=== PATIENT | female | born 1970 | race Caucasian/White ===

== ENCOUNTER 2024-01-07 08:11 | Observation (INO) | payer BC ==
[2024-01-01 11:26] LABS: BASOPHILS # (AUTO) 0.1 X10'3 (0-0.2); EOSINOPHILS # (AUTO) 0.1 X10'3 (0-0.9); EOSINOPHILS % (AUTO) 0.9 % (0-6); LYMPHOCYTES # (AUTO) 1.3 X10'3 (1.1-4.8); LYMPHOCYTES % (AUTO) 15.9 % (21-51); MEAN CORPUSCULAR HEMOGLOBIN 27.9 PG (27.0-31.0); MEAN CORPUSCULAR HGB CONC 33.4 g/dL (33.0-36.5); MEAN CORPUSCULAR VOLUME 83.4 FL (78-98); MEAN PLATELET VOLUME 6.4 FL (7.4-10.4); MONOCYTES # (AUTO) 0.6 X10'3 (0-0.9); MONOCYTES % (AUTO) 7.6 % (2-12); NEUTROPHILS # (AUTO) 6.1 X10'3 (1.8-7.7); NEUTROPHILS % (AUTO) 74.6 % (42-75); PRE OP HEMATOCRIT 44.5 % (35.0-45.0); PRE OP HEMOGLOBIN 14.9 g/dL (12.0-16.0); PRE OP PLATELET COUNT 271 X10'3 (140-440); PRE OP WHITE BLOOD COUNT 8.1 10'3 (4.8-10.8); RED BLOOD COUNT 5.33 X10'6 (4.20-5.60); RED CELL DISTRIBUTION WIDTH 14.6 % (11.5-14.5)
[2024-01-01 11:36] LABS: PRE OP PROTIME 10.7 SECONDS (9.0-12.0)
[2024-01-01 11:46] LABS: ALBUMIN 3.4 G/DL (3.4-5.0); ALBUMIN/GLOBULIN RATIO 0.8 (1.1-1.5); ALKALINE PHOSPHATASE 109 IU/L (46-116); BLOOD UREA NITROGEN 21 MG/DL (7-18); BUN/CREATININE RATIO 24.7 (10.0-20.0); CALCIUM 8.6 MG/DL (8.5-10.1); CHLORIDE 106 MMOL/L (99-107); CREATININE 0.85 MG/DL (0.40-0.90); PRE OP ALT 24 U/L (30-65); PRE OP ANION GAP 8 (8-16); PRE OP AST 17 U/L (10-37); PRE OP BILIRUB, TOTAL 0.3 MG/DL (0.0-1.0); PRE OP GLUCOSE 98 MG/DL (70-104); PRE OP POTASSIUM 3.9 MMOL/L (3.4-5.1); PRE OP SODIUM 141 MMOL/L (135-145); TOTAL CARBON DIOXIDE 26.6 MMOL/L (24-32); TOTAL PROTEIN 7.6 G/DL (6.4-8.2); eGFR 69 ML/MIN
[~2024-01-07] VITALS: Ht 172.7 cm; Wt 116.8 kg
[2024-01-07] VITALS (31 sets, daily range): BP systolic 98–189; BP diastolic 47–96; PULSE 77–105; RESP 11–22; TEMP 96.9–99; O2SAT 90–99
[2024-01-07] MEDS: cefazolin 2gm/D5W 100mL 100 ML IV ONE (05:30)
[~2024-01-07 08:11] MED LIST: ASHWAGANDA PO; BUPIVACAINE liposomal/PF 13.3 MG/ML vial IM ONE; BUPIVAcaine/PF 2.5mg/ml (0.25%) 10ml vial ONE; CRANBERRY PO; LORA-269 PO; NAC PO; VITAMIN C PO; [UNRECOGNIZED DRUG - OTHER] PO; [UNRECOGNIZED DRUG - OTHER] PO; methylene blue (5mg/ml) 50mg/10ml ampul IV ONE
[2024-01-07] MEDS: ringers solution, lacted 1,000 ML IV SCH ×3 (08:51→14:39)
[2024-01-07] MEDS: famotidine 20mg tablet PO ONE (08:52)
[2024-01-07] MEDS ORDERED: BUPIVAcaine/PF 2.5mg/ml (0.25%) 10ml vial ONE (09:17)
[2024-01-07] MEDS ORDERED: BUPIVACAINE liposomal/PF 13.3 MG/ML vial IM ONE (09:17)
[2024-01-07] MEDS ORDERED: BUPIVAcaine 0.5% inj/PF 30 ML ONE (09:17)
[2024-01-07] MEDS ORDERED: sevoflurane 250ml liquid IH ONE (09:21)
[2024-01-07] MEDS ORDERED: propofol inj 20 ML IV ONE (09:24)
[2024-01-07] MEDS ORDERED: MIDAZolam 1 MG/ML 5ML VIAL ONE (09:24)
[2024-01-07] MEDS ORDERED: rocuronium 10mg/ml inj IV ONE (09:24)
[2024-01-07] MEDS ORDERED: ondansetron/PF 4mg/2ml inj ONE (09:24)
[2024-01-07] MEDS ORDERED: dexamethasone sod phosphate 4mg/ml inj. ONE (09:24)
[2024-01-07] MEDS ORDERED: LIDOcaine 2% (20mg/ml) 5ml vial ONE (09:24)
[2024-01-07] MEDS ORDERED: fentaNYL /PF 50mcg/ml 5ml ampule ONE (09:25)
[2024-01-07] MEDS: methylene blue (5mg/ml) 50mg/10ml ampul IV ONE (09:35)
[2024-01-07] MEDS ORDERED: labetalol 20mg/4ml (5mg/ml) syringe IV ONE ×3 (09:52→12:36)
[2024-01-07] MEDS ORDERED: acetaminophen 1,000mg/100ml IV 100 ML IV ONE (09:53)
[2024-01-07] MEDS ORDERED: labetalol 20mg/4ml (5mg/ml) syringe IV PRN (10:20)
[2024-01-07] MEDS ORDERED: fentaNYL/PF 50MCG/1 ML 2ML syringe IV PRN (10:20)
[2024-01-07] MEDS ORDERED: hydrALAZINE 20mg/ml inj. IV PRN (10:20)
[2024-01-07] MEDS ORDERED: HYDROmorphone/PF 0.2 MG/ML SYRINGE IV PRN (10:20)
[2024-01-07] MEDS ORDERED: hydrALAZINE 20mg/ml inj. IV ONE (11:39)
[2024-01-07] MEDS ORDERED: fentaNYL/PF 50MCG/1 ML 2ML syringe ONE (12:20)
[2024-01-07] MEDS: ondansetron/PF 4mg/2ml inj IV PRN (13:42)
[2024-01-07] MEDS: fentaNYL/PF 50MCG/1 ML 2ML syringe IV PRN (14:01)
[2024-01-07] MEDS ORDERED: morphine 2 MG/ML inj. syringe IV PRN (14:10)
[2024-01-07] MEDS ORDERED: ondansetron/PF 4mg/2ml inj IV PRN (14:10)
[2024-01-07] MEDS: HYDROmorphone/PF 0.2 MG/ML SYRINGE IV PRN (14:25)
[2024-01-07] MEDS: LORazepam 2 mg/ml vial IV ONE (15:08)
[2024-01-07] MEDS: ceFAZolin/D5W- 1GM premix 50 ML IV SCH (16:24)
[2024-01-07] MEDS: HYDROcodone/acetaminophen 5mg/325mg tablet PO PRN (20:32)
[2024-01-07] MEDS ORDERED: diphenhydrAMINE 25mg capsule PO PRN (23:45)
[2024-01-07] MEDS ORDERED: HYDROmorphone inj. 0.5 MG/0.5 ML DISP.SYRIN IV PRN (23:45)
[2024-01-08 02:00] VITALS: BP 111/52
[2024-01-08] MEDS: LORazepam 1 MG tablet PO PRN (04:45)
[2024-01-08 07:00] VITALS: RESP 16; O2SAT 95
[2024-01-08 07:24] LABS: BASOPHILS % (AUTO) 0.2 % (0-1); EOSINOPHILS % (AUTO) 0 % (0-6); HEMATOCRIT 36.4 % (35.0-45.0); LYMPHOCYTES # (AUTO) 1.2 X10'3 (1.1-4.8); LYMPHOCYTES % (AUTO) 7.6 % (21-51); MEAN CORPUSCULAR HEMOGLOBIN 27.6 PG (27.0-31.0); MEAN CORPUSCULAR VOLUME 83.5 FL (78-98); MEAN PLATELET VOLUME 6.7 FL (7.4-10.4); MONOCYTES % (AUTO) 6.8 % (2-12); NEUTROPHILS # (AUTO) 12.9 X10'3 (1.8-7.7); NEUTROPHILS % (AUTO) 85.4 % (42-75); PLATELET COUNT 233 X10'3 (140-440); RED BLOOD COUNT 4.36 X10'6 (4.20-5.60); RED CELL DISTRIBUTION WIDTH 14.8 % (11.5-14.5); WHITE BLOOD COUNT 15.1 X10'3 (4.5-11.0)
[2024-01-08 07:58] VITALS: RESP 16; O2SAT 98
[2024-01-08 08:38] VITALS: PULSE 86; RESP 16; O2SAT 99
[2024-01-08 10:00] VITALS: BP 139/72; PULSE 85; RESP 20; TEMP 98.6; O2SAT 97
== END 2024-01-08 13:10 | disposition home or self-care (01) ==
LOC: PAS 08:11 → PACU 14:28 → SUR 3N 16:30
PROVIDERS: ADMIT Surgery; ATTEND Surgery
DX: D05.12 Intraductal carcinoma in situ of left breast (principal); D05.11 Intraductal carcinoma in situ of right breast; G47.30 Sleep apnea, unspecified; F41.9 Anxiety disorder, unspecified; E66.9 Obesity, unspecified; Z87.891 Personal history of nicotine dependence; Z79.899 Other long term (current) drug therapy
CPT/HCPCS: 19303; 36415; 38525; 38792; 80053; 82948; 85025; 85610; 85730; 93005; 94760; 96365; 96366; 96375; 96376; C9290; G0378; J0131; J0360; J0690; J1100; J1170; J2060; J2250; J2405; J2704; J3010; J3490; J7120; Q9968; A4215; A4615; A4618; A6253; A6258; A6449; A7000; C9250; S0020

== ENCOUNTER 2024-12-02 13:52 | Emergency (ER) | payer BC, MEDICAID ==
[~2024-12-02] VITALS: Ht 167.6 cm; Wt 113.0 kg
[~2024-12-02 13:52] MED LIST changes: -BUPIVACAINE liposomal/PF 13.3 MG/ML vial IM ONE; -BUPIVAcaine/PF 2.5mg/ml (0.25%) 10ml vial ONE; -methylene blue (5mg/ml) 50mg/10ml ampul IV ONE
[2024-12-02 14:05] VITALS: TEMP 98.2
[2024-12-02] MEDS ORDERED: oxyCODONE IR 5mg (immed. release) tablet PO STA (14:55)
[2024-12-02] MEDS: HYDROmorphone/PF 0.2 MG/ML SYRINGE IV STA (15:37)
[2024-12-02 16:07] VITALS: BP 147/88; PULSE 66; RESP 16; O2SAT 98
[2024-12-02] MEDS ORDERED: OXYC-145 PO (16:16)
== END 2024-12-02 16:37 | disposition home or self-care (01) ==
LOC: ER 13:52
DX: S82.832A Other fracture of upper and lower end of left fibula, initial encounter for closed fracture (principal); S82.872A Displaced pilon fracture of left tibia, initial encounter for closed fracture; Z88.5 Allergy status to narcotic agent; Z88.6 Allergy status to analgesic agent; Z88.8 Allergy status to other drugs, medicaments and biological substances; X50.1XXA Overexertion from prolonged static or awkward postures, initial encounter; Y93.89 Activity, other specified; Y92.89 Other specified places as the place of occurrence of the external cause; Y99.8 Other external cause status
CPT/HCPCS: 29515; 73610; 96374; 99284; J1171; A6446; A6449

== ENCOUNTER 2025-03-01 11:42 | Outpatient (CLI) | payer MEDICAID ==
[~2025-03-01 11:42] MED LIST changes: +OXYC-145 PO
--- NOTE | 2025-03-01 17:29 | RADIOLOGY REPORT ---
PROCEDURE: MR MRI HEAD INDICATION: HEADACHE, UNSPECIFIED, HISTORY OF BREAST CA, FINISHED TX IN AUG 20 EXAM DATE: 03/01/2025 12:17 PM COMPARISON: None TECHNIQUE: MRI of the brain without intravenous contrast. FINDINGS: Diffusion-weighted imaging was not obtained. There is no evidence of acute intracranial hemorrhage, extra-axial collection, mass effect, midline s hift, herniation or hydrocephalus. The ventricles, sulci and cisterns appear age appropriate. Mild changes of chronic microvascular ischemic disease. No abnormal enhancement. There are no signal abnormalities on the susceptibility weighted sequences. The major vascular flow voids are present. Right mastoid effusion. The surrounding soft tissues and osseous structures are unremarkable. IMPRESSION: 1. No evidence of intracranial hemorrhage, mass effect or hydrocephalus. Mild changes of chronic jesusita rovascular ischemic disease. No enhancing intracranial metastasis. Diffusion-weighted images were not obtained. HS:Y
[2025-03-01] MEDS ORDERED: GADOTERATE MEGLUMINE 7.5 MMOL/15 ML VIAL IV ONE (17:52)
== END 2025-03-01 23:59 | disposition home or self-care (01) ==
LOC: MRI 11:42
PROVIDERS: ATTEND Neuromusculoskeletal Medicine & OMM
DX: R51.9 Headache, unspecified (principal)
CPT/HCPCS: 70553; A9575

== ENCOUNTER 2025-07-13 10:01 | Outpatient (CLI) | payer MEDICAID ==
--- NOTE | 2025-07-13 14:29 | RADIOLOGY REPORT ---
EXAM: MR MRI LUMBAR SPINE CLINICAL HISTORY: RADICULOPATHY, CERVICAL REGION,SCIATICA, RIGHT SIDE COMPARISON: None TECHNIQUE: MRI imaging of the lumbar was performed on a MRI imaging system without intravenous contrast. FINDINGS: For the purposes of this examination, the last well-formed intervertebral disc space will be designated as L5-S1. By this convention, the conus medullaris terminates at the l2 level. Alignment: Normal. Vertebrae: Normal. Vertebral Marrow: Normal. Epidural Space: Normal. Spinal Cord: Normal. Cauda Equina Roots: Normal. Discs: Normal. Ligaments: Normal. At the T12-L1 level, there is no evidence of central spinal canal or neuroforaminal stenosis. At the L1-L2 level, there is no evidence of central spinal canal or neuroforaminal stenosis. At the L2-L3 level, there is no evidence of central spinal canal or neuroforaminal stenosis. At the L3-L4 level, there is no evidence of central spinal canal or neuroforaminal stenosis. At the L4-L5 level, 2 mm disc bulge causing mild spinal canal and bilateral neural foraminal stenosis. At the L5-S1 level, 2 mm disc bulge causing mild spinal canal and bilateral neural foraminal stenosis. IMPRESSION: At the L4-L5 level, 2 mm disc bulge causing mild spinal canal and bilateral neural foraminal stenosis. At the L5-S1 level, 2 mm disc bulge causing mild spinal canal and bilateral neural foraminal stenosis.
--- NOTE | 2025-07-13 15:10 | RADIOLOGY REPORT ---
PROCEDURE: MR MRI C SPINE Indication: RADICULOPATHY, CERVICAL REGION,SCIATICA, RIGHT SIDE COMPARISON: None TECHNIQUE: Multiplanar multisequence images of the the cervical spine are obtained. FINDINGS: The cervical vertebral body heights are maintained. Moderate multilevel disc space narrowing. Straightening of normal cervical spine curvature. 3 mm anterolisthesis C7 upon T1. No abnormal marrow edema. No prevertebral edema. Atlantooccipital, atlantoaxial articulations intact. C2-3: Small disc osteophyte complex. Narrowing ventral and dorsal CSF spaces. Thecal sac measures 10 mm AP. No spinal canal stenosis. Mild bilateral neural foraminal stenosis. C3-4: Small disc osteophyte complex narrowing of the ventral CSF space. Thecal sac measures 10 mm AP. No spinal canal stenosis. [id number] right neural foraminal stenosis and mild left neural foraminal stenosis. C4-5, Disc osteophyte complex narrowing the ventral and dorsal CSF spaces. Thecal sac measures 9 mm AP. Mild spinal canal stenosis. [id number]-[id number] left and mild right neural foraminal stenosis. C5-6: Small disc osteophyte complex narrowing the ventral and dorsal CSF spaces, eccentric to the right. Thecal sac measures 9 mm AP. Mild spinal canal stenosis. Moderate bilateral neural foraminal stenosis. C6-7: Small disc osteophyte complex eccentric to the right narrowing the ventral and dorsal CSF spaces, eccentric to the right. Thecal sac measures 9 mm AP. Mild spinal canal stenosis. Moderate to severe right and moderate left neural foraminal stenosis. C7-T1: Small disc osteophyte complex. Thecal sac measures 11 mm AP. No spinal canal stenosis. Moderate bilateral neural foraminal stenosis, [id number]-right. IMPRESSION: Moderate cervical degenerative disc disease. Mild spinal canal stenosis C4-5, C5-6 and C6-7. Multilevel neural foraminal stenosis as described above most pronounced at C5-6, C6-7 and C7-T1.
== END 2025-07-13 23:59 | disposition home or self-care (01) ==
LOC: MRI02 10:01
PROVIDERS: ATTEND Nurse Practitioner
DX: M50.123 Cervical disc disorder at C6-C7 level with radiculopathy (principal); M48.03 Spinal stenosis, cervicothoracic region; M54.31 Sciatica, right side; M25.78 Osteophyte, vertebrae
CPT/HCPCS: 72141; 72148